=== PATIENT | male | born 1995 | race African-American/Black ===

== ENCOUNTER 2017-09-22 10:28 | Emergency (ER) | payer OTHER ==
[~2017-09-22] VITALS: Ht 175.3 cm; Wt 68.9 kg
[2017-09-22] MEDS ORDERED: MOTRIN600 MG PO (11:41)
[2017-09-22] MEDS ORDERED: FLEXERIL10 MG PO (11:41)
[2017-09-22 11:48] VITALS: BP 134/75
== END 2017-09-22 11:43 | disposition home or self-care (01) ==
LOC: EME 10:28
DX: M54.42 Lumbago with sciatica, left side (principal)
CPT/HCPCS: 72100; 99281; 99283